=== PATIENT | male | born 1995 | race African-American/Black ===

== ENCOUNTER 2021-01-02 07:09 | Emergency (ER) | payer OTHER ==
[~2021-01-02] VITALS: Ht 170.2 cm; Wt 105.9 kg
[2021-01-02] MEDS ORDERED: AMLO1TAB24 PO (07:16)
[2021-01-02] MEDS ORDERED: CYCL5TAB PO (07:18)
[2021-01-02] MEDS ORDERED: GABA-845 PO (07:18)
[2021-01-02] MEDS ORDERED: MELO15TA28 PO (07:19)
--- NOTE | 2021-01-02 07:58 | REP ---
INDICATION: central chest pain COMPARISON: None. TECHNIQUE: PA and lateral. FINDINGS: The mediastinum and cardiac silhouette are normal. The lung singh are clear and without acute consolidation, effusion, or pneumothorax. The skeletal structures are intact and normal. IMPRESSION: No acute cardiopulmonary process. <Electronically signed by Evan Lira > 01/02/21 [id number]
[2021-01-02 08:04] LABS: BASO # 0.1 10^3/uL (0.0-0.2); BASO % 0.6 % (0.0-1.0); EOS # 0.2 10^3/uL (0.0-0.5); HEMATOCRIT 41.6 % (42.0-52.0); HEMOGLOBIN 13.7 g/dl (13.5-17.5); LYMPH # 2.2 10^3/uL (1.5-5.0); LYMPH % 25.5 % (24.0-44.0); MEAN CORPUSCULAR HEMOGLOBIN 29.3 pg (27.0-33.0); MEAN CORPUSCULAR HGB CONC 32.9 g/dl (32.0-36.5); MEAN CORPUSCULAR VOLUME 88.9 fl (80.0-96.0); MONO # 0.8 10^3/uL (0.0-0.8); MONO % 9.4 % (2.0-8.0); NEUTROPHILS # 5.3 10^3/uL (1.5-8.5); NEUTROPHILS % 61.3 % (36.0-66.0); PLATELET COUNT, AUTOMATED 324 10^3/uL (150-450); RED BLOOD COUNT 4.68 10^6/uL (4.30-6.10); WHITE BLOOD COUNT 8.6 10^3/uL (4.0-10.0)
[2021-01-02 08:20] LABS: ERYTHROCYTE SEDIMENTATION RATE 12 mm/hr (0-15)
[2021-01-02 08:33] LABS: BLOOD UREA NITROGEN 14 MG/DL (7-18); CALCIUM LEVEL 9.2 MG/DL (8.5-10.1); CARBON DIOXIDE LEVEL 28 MEQ/L (21-32); CHLORIDE LEVEL 107 MEQ/L (98-107); CREATININE FOR GFR 0.93 MG/DL (0.70-1.30); GLOMERULAR FILTRATION RATE > 60.0 (>60); GLUCOSE, FASTING 101 MG/DL (70-100); POTASSIUM SERUM 4.1 MEQ/L (3.5-5.1); SODIUM LEVEL 140 MEQ/L (136-145)
[2021-01-02 09:09] VITALS: BP 166/82
--- NOTE | 2021-01-04 12:18 | ECGEPIP ---
[facility] - ED Test Date: 2021-01-02 Pat Name: KAT SUE Department: Room: - Gender: Male Legal Compliance Officer: ED : 1995 Requested By: Peng Aguilar Order Number: [id number] Reading MD: Matilde Joy Measurements Intervals [place] Rate: 62 P: 20 MO: 166 QRS: 31 QRSD: 104 T: -12 QT: 384 QTc: 389 Interpretive Statements Normal sinus rhythm No prior Electronically Signed on 01-04-2021 12:18:05 EDT by Matilde Joy
== END 2021-01-02 09:09 | disposition home or self-care (01) ==
LOC: M ED 07:09
DX: R07.89 Other chest pain (principal); R01.1 Cardiac murmur, unspecified; Z79.899 Other long term (current) drug therapy

== ENCOUNTER 2022-04-18 19:08 | Emergency (ER) | payer OTHER ==
[~2022-04-18] VITALS: Ht 172.7 cm; Wt 108.2 kg
[~2022-04-18 19:08] MED LIST: AMLO1TAB24 PO; CYCL5TAB PO; GABA-283 PO; MELO15TA28 PO
[2022-04-19] MEDS ORDERED: hydroCHLOROthiazide 12.5 MG CAPSULE PO ONE
[2022-04-19] MEDS ORDERED: CYCLOBENZAPRINE 10MG TABLET PO ONE
[2022-04-19] MEDS ORDERED: LOSARTAN 25 MG TAB PO ONE
[2022-04-19] MEDS ORDERED: CYCL-707 PO (00:39)
[2022-04-19] MEDS ORDERED: HYZA50TA2 PO (00:39)
[2022-04-19 00:52] VITALS: BP 165/85
== END 2022-04-19 00:53 | disposition home or self-care (01) ==
LOC: M ED 19:08
DX: I10 Essential (primary) hypertension (principal); M54.50 Low back pain, unspecified; G89.29 Other chronic pain; Z77.098 Contact with and (suspected) exposure to other hazardous, chiefly nonmedicinal, chemicals; Z79.899 Other long term (current) drug therapy